=== PATIENT | male | born 1975 | race Caucasian/White ===

== ENCOUNTER 2021-04-10 15:14 | Emergency (ER) | payer BC ==
[~2021-04-10] VITALS: Ht 175.3 cm; Wt 95.3 kg
[~2021-04-10 15:14] MED LIST: CIPRO250 M1 PO; LORTAB 5 MG/5001 TA1 PO; NORFLEX100 MG PO; PYRIDIUM200 M1 PO; VICODIN 5-5001 EACH PO
[2021-04-10] MEDS ORDERED: LIPITOR20 MG PO (15:20)
[2021-04-10 16:38] LABS: ABSOLUTE LYMPHOCYTES 2.4 thou/uL (0.8-5.3); ABSOLUTE MONOCYTES 0.7 thou/uL (0.0-1.2); ABSOLUTE NEUTROPHILS 7.1 thou/uL (1.6-8.1); BASOPHILS 0.4 %; EOSINOPHILS 0.2 %; HEMATOCRIT 48.5 % (42.0-52.0); HEMOGLOBIN 16.4 gm/dL (14.0-18.0); LYMPHOCYTES 23.3 %; MCH 29.9 pg (26.0-34.0); MCHC 33.9 g/dL (28.0-37.0); MCV 88.1 fL (80.0-100.0); MONOCYTES 6.9 %; MPV 8.9 fl. (7.2-11.1); NUCLEATED RBCS 0 /100WBC; PLATELET COUNT* 235 thou/uL (150-400); POLYS 69.2 %; RBC 5.51 mil/uL (4.50-6.00); RDW-CV 12.3 % (10.5-14.5); WBC 10.3 thou/uL (4.0-11.0)
[2021-04-10 16:50] LABS: CALCIUM 9.3 mg/dL (8.5-10.1); CREATININE 1.7 mg/dL (0.6-1.3); POTASSIUM 4.5 mmol/L (3.5-5.1)
[2021-04-10 16:55] LABS: ALBUMIN 4.9 g/dL (3.4-5.0); TOTAL BILIRUBIN 0.9 mg/dL (<0.1-1.0); TOTAL PROTEIN 8.1 g/dL (6.4-8.2)
[2021-04-10] MEDS ORDERED: DEXAMETHASONE 44 M1 PO ×2 (17:03→17:08)
[2021-04-10] MEDS ORDERED: ZPAK PO ×2 (17:03→17:08)
[2021-04-10] MEDS ORDERED: HYDROCODON-ACE1 EAC7 PO (17:08)
[2021-04-10] MEDS ORDERED: ZOFRAN ODT4 MG DISSOLVE (17:08)
[2021-04-10 17:16] VITALS: BP 150/97
--- NOTE | 2021-04-11 10:02 | EKG ---
[place] [address] ELECTROCARDIOGRAM REPORT Name: AVELINO BAZANSHJUANJO Nunez Room: [facility]#: [id number] Admission: 04/10/21 Attend Phys: Discharge: 04/10/21 Date of : 79 Date of Service: 04/10/21 1518 Report #: [id number] THIS REPORT FOR: //name// [facility] ED Test Date: 2021-04-10 Test Time: 15:18:34 Pat Name: SOURAV BAZAN Department: Room: Gender: Shop Welder: : 1975 Requested By: Kevin Padilla Order Number: [id number] MD: Mike Chi Measurements Intervals [place] Rate: 94 P: 55 TN: 112 QRS: 5 QRSD: 88 T: 85 QT: 341 QTc: 427 Interpretive Statements Sinus rhythm Borderline short TN interval Baseline wander in lead(s) II,III,aVR,aVL,aVF,V3,V5,V6 No previous ECG available for comparison Electronically Signed On 04-11-2021 10:02:17 CDT by Mike Chi [email or web address] <ELECTRONICALLY SIGNED> By: Mike Chi MD, [facility] 04/11/21 1002 1518 1518 Mike Chi MD, [facility] /EPI
== END 2021-04-10 17:16 | disposition home or self-care (01) ==
LOC: M.ERS 15:14
PROVIDERS: Family Medicine
DX: R07.89 Other chest pain (principal); Z88.5 Allergy status to narcotic agent; Z87.442 Personal history of urinary calculi